=== PATIENT | female | born 1955 | race Caucasian/White ===

== ENCOUNTER → 2016-08-11 | Outpatient (CLI) | payer BC ==
[~2016-08-11] MED LIST: AMOX-355 PO; ESTR0.455; HYDR-3583 PO
--- NOTE | 2016-08-11 09:32 | Diagnostic Imaging Report ---
CLINICAL INDICATION: Patient with hematuria. Patient has family history of bladder cancer. EXAM: Ultrasound of both kidneys. COMPARISON: None. FINDINGS: There is mild prominence of the right renal pelvis which is nonspecific. Otherwise, both kidneys are normal in size, shape, echogenicity and cortical thickness without hydronephrosis, stones, or focal lesions with the right and left kidneys measuring 9.9 cm and 9.7 cm in their craniocaudal dimensions, respectively. The bladder is decompressed and cannot be appropriately evaluated on this exam. IMPRESSION: 1: Nonspecific mild prominence of the right renal pelvis. Otherwise unremarkable bilateral renal ultrasound. There is no evidence of hydronephrosis or gross renal mass. 2: Bladder is decompressed and cannot be evaluated on this exam. Dictated by: Dictated on workstation # [id number]
== END ==
LOC: RAD 08:41
PROVIDERS: ATTEND Family Medicine
DX: R31.9 Hematuria, unspecified (principal); Z80.51 Family history of malignant neoplasm of kidney
CPT/HCPCS: 76770

== ENCOUNTER → 2017-07-11 | Outpatient (CLI) | payer BC ==
[~2017-07-11] MED LIST changes: +ESTR0.5T PO; +LORA10TA76 PO
--- NOTE | 2017-07-11 15:22 | Diagnostic Imaging Report ---
INDICATION: Routine screening. COMPARISON: 04/05/2013. TECHNIQUE: Bilateral CC and MLO 3D mammography was performed. The current study was also evaluated with a Computer Aided Detection (CAD) system. FINDINGS: Scattered fibroglandular densities are identified bilaterally. There is a density noted in the superior right breast at mid depth on the MLO view, more prominent than on the prior exam. No correlate on the CC view is seen. No other suspicious densities are seen. No malignant appearing microcalcifications are identified. The axillae are unremarkable. IMPRESSION: Right breast density. Additional views including spot compression and mediolateral views are recommended. ACR BI-RADS Category 0: Incomplete. (Needs additional imaging evaluation). Result letter will be mailed to the patient. Note: At least 10% of breast cancer is not imaged by mammography. Dictated by: Dictated on workstation # [id number]
== END ==
LOC: RAD 08:45
PROVIDERS: ATTEND Family Medicine
DX: Z12.31 Encounter for screening mammogram for malignant neoplasm of breast (principal)
CPT/HCPCS: 77067

== ENCOUNTER → 2017-07-15 | Outpatient (CLI) | payer BC ==
--- NOTE | 2017-07-15 12:53 | Diagnostic Imaging Report ---
Indication: Right breast density. Patient presents for additional views. Correlation is made with recent screening study from 07/11/2017. 2-D and 3-D unilateral right diagnostic mammography was performed. Views included magnification as well as 90-degree lateral views as well as spot compression. Additional views confirm the presence of a subtle cluster of microcalcifications in the upper and slightly outer right breast posterior depth approximately 8 cm from the nipple. No definite associated soft tissue mass is seen. Tissue sampling would be recommended. Impression: BI-RADS 4 Suspicious clustered microcalcifications upper outer right breast posterior depth. Stereotactic biopsy is recommended. Dictated by: Dictated on workstation # [id number]
== END ==
LOC: RAD 11:19
PROVIDERS: ATTEND Family Medicine
DX: R92.2 Inconclusive mammogram (principal)

== ENCOUNTER 2017-07-18 05:41 | Outpatient (CLI) | payer BC ==
[~2017-07-18] VITALS: Ht 172.7 cm; Wt 73.9 kg
[~2017-07-18 05:41] MED LIST changes: -ESTR0.5T PO; -LORA10TA76 PO
[2017-07-18] MEDS ORDERED: LORA10TA76 PO (13:26)
[2017-07-18] MEDS ORDERED: ESTR0.5T PO (13:26)
== END 2017-07-18 13:30 ==
LOC: PREOP 05:41
PROVIDERS: ATTEND Surgery
DX: Z01.818 Encounter for other preprocedural examination (principal); Z12.11 Encounter for screening for malignant neoplasm of colon

== ENCOUNTER 2017-07-25 07:29 | Day surgery (SDC) | payer BC, OTHER ==
[~2017-07-25] VITALS: Ht 172.7 cm; Wt 73.9 kg
[~2017-07-25 07:29] MED LIST changes: +ESTR0.5T PO; +LORA10TA76 PO
[2017-07-25] MEDS ORDERED: NS IV 500 ML 500 ML ONE (07:44)
[2017-07-25] MEDS ORDERED: NS IV 500 ML 500 ML IV PRN (07:59)
[2017-07-25 08:02] VITALS: BP 130/74
[2017-07-25] MEDS ORDERED: fentaNYL INJECTION 100 MCG/2 ML AMP ONE ×2 (09:15→09:16)
[2017-07-25] MEDS ORDERED: MIDAZOLAM 2 MG/2 ML (VERSED) VIAL ONE ×4 (09:16→09:59)
[2017-07-25] MEDS: fentaNYL INJECTION 100 MCG/2 ML AMP IVP PRN ×4 (09:28→09:54)
--- NOTE | 2017-07-25 09:30 | History & Physicial ---
History of Present Illness History of Present Illness Reason for visit/HPI to undergo screening colonoscopy. No family history of polyps or colon cancer. Date of Admission 07/25/17 Date Seen by Provider: July 25, 2017 Time Seen by Provider: 09:10 I consulted on this patient on 07/25/17 09:29 Attending Physician Liliane Hernandez MD Admitting Physician Taylor Zheng DO Consult Allergies and Home Medications Allergies Coded Allergies: No Known Drug Allergies (Unverified , 07/18/17) Home Medications Estradiol 0.5 Mg Tablet, 0.25 MG PO DAILY, (Reported) Loratadine 10 Mg Tablet, PO DAILY, (Reported) Patient Home Medication List Home Medication List Reviewed: Yes Past Avdbqwf-Iagwdy-Yjeudt Hx Patient Social History Marrital Status: Employed/Student: unemployed Alcohol Use: Denies Use Recreational Drug Use: No Smoking Status: Never a Smoker Recent Foreign Travel: No Contact w/other who traveled: No Recent Hopitalizations: No Seasonal Allergies Seasonal Allergies: Yes Surgeries Yes Hysterectomy Respiratory No Cardiovascular No Neurological No Reproductive System Hx Reproductive Disorders: No Sexually Transmitted Disease: No HIV/AIDS: No 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 HEENT Loss of Vision: Bilateral Hearing Impairment: Denies Blood Transfusions Adverse Reaction to a Blood Tr: No (N/A) Constitutional: no symptoms reported EENTM: no symptoms reported Respiratory: no symptoms reported Cardiovascular: no symptoms reported Gastrointestinal: no symptoms reported Genitourinary: no symptoms reported Musculoskeletal: no symptoms reported Skin: no symptoms reported Psychiatric/Neurological: No Symptoms Reported Physical Exam Vital Signs Vital Signs - First Documented 07/25/17 08:02 Temp 97.0 Pulse 64 Resp 20 B/P (MAP) 130/74 (92) Pulse Ox 97 O2 Delivery Room Air Capillary Refill : General Appearance: No Apparent Distress Neck: Normal Inspection Respiratory: Lungs Clear Cardiovascular: Regular Rate, Rhythm Gastrointestinal: Non Tender, Soft Rectal: Deferred Back: Normal Inspection Extremity: Normal Inspection Neurologic/Psychiatric: Oriented x3 Skin: Warm/Dry Assessment/Plan Assessment and Plan lady to undergo screening colonoscopy. Discussed in detail. Admission Diagnosis Admission Status: Other (Outpt Proc) LILIANE HERNANDEZ MD July 25, 2017 9:30 am
--- NOTE | 2017-07-25 09:31 | Conscious Sedation/ASA ---
Conscious Sedation Pre-Proced Time Reviewed: 09:30 ASA Class: 2 Airway Mallampati Classification: ([place] appropriate class) I. II. III, IV Lungs Heart ASA score ASA 1: a normal healthy patient ASA 2: a patient with a mild systemic disease (mid diabetes, controlled hypertension, obesity ASA 3: a patient with a severe systemic disease that limits activity (angina , COPD, prior Myocardial infarction) ASA 4: a patient with an incapacitating disease that is a constant threat to life (CHF, renal failure) ASA 5: a moribund patient not expected to survive 24 hrs. (ruptured aneurysm) ASA 6: a declared brain patient whose organs are being harvested. For emergent operations, add the letter E after the classification Grade 1 Sedation Plan: Discussed options with patient/fam Note The patient is an appropriate candidate to undergo the planned procedure, sedation, and anesthesia. The patient immediately re-assessed prior to indication. LILIANE BRENNAN MD July 25, 2017 9:31 am
[2017-07-25] MEDS: MIDAZOLAM 2 MG/2 ML (VERSED) VIAL IVP PRN ×4 (09:32→10:07)
--- NOTE | 2017-07-25 10:32 | Endo Procedure Record ---
Endo Procedure Report Date of Procedure Last Colonoscopy: No July 25, 2017 Surgeon (s) LILIANE BRENNAN MD Post Procedure/Op Diagnosis 15 mm, pedunculated polyp at the mid sigmoid colon Extensive sigmoid diverticulosis 1 mm sessile polyp at the cecum Procedure Performed Colonoscopy to cecum Snare polypectomy 1 Hot biopsy polypectomy 1 Description of Procedure Anesthesia Type: Conscious Sedation Specimen(s) collected/removed Sigmoid polyp Description of the Procedure indication for the procedure: This lady came in for screening colonoscopy. Informed consent was obtained after reviewing the procedure in detail. Description of the procedure: She was placed in left lateral decubitus position and her vital signs were monitored. Conscious sedation was achieved using Versed and fentanyl. Digital rectal examination was unremarkable. The colonoscope was then introduced in the rectum and advanced with some difficulty around the sigmoid colon, to the cecum It was then withdrawn slowly and the mucosa examined in a systematic fashion. Findings: 1. Extensive sigmoid diverticulosis, making the procedure difficult. 2. 15 mm, pudendal related polyp at the mid sigmoid colon. This was snared piecemeal and part of it was retrieved using the approximate collection device. The rest of the resected polyp would be removed by straining her stools prior to discharge. 3.1 mm polyp at the cecum, that is excised with hot biopsy forceps. She tolerated the procedure well and was taken back to the nursing area in a stable condition. Impression: Colonoscopy. Large sigmoid polyp excised. Recommend repeating 2 years. Copy Copies To 1: RIMA PRASAD XAVIER M MD July 25, 2017 10:32 am
--- NOTE | 2017-07-25 10:33 | Discharge Inst-Simple/Standard ---
Discharge Inst-Standard Discharge Medications New, Converted or Re-Newed RX: Other Patient Instructions/Follow Up Plan of Care/Instructions/FU: Repeat colonoscopy in 2 years Activity as Tolerated: Yes Discharge Diet: No Restrictions LILIANE BRENNAN MD July 25, 2017 10:33 am
[2017-07-25 10:45] VITALS: BP 118/72
[2017-07-25 11:30] VITALS: BP 116/72
[2017-07-25 12:00] VITALS: BP 116/72
== END 2017-07-25 12:00 | disposition home or self-care (01) ==
LOC: ENDO 07:29
PROVIDERS: ATTEND Surgery
DX: Z12.11 Encounter for screening for malignant neoplasm of colon (principal); D12.5 Benign neoplasm of sigmoid colon; K63.5 Polyp of colon; K57.30 Diverticulosis of large intestine without perforation or abscess without bleeding
CPT/HCPCS: 88305

== ENCOUNTER → 2017-07-27 | Outpatient (CLI) | payer BC, OTHER ==
[~2017-07-27] MED LIST changes: +LIDOCAINE 1% INJ 20 ML 20 ML VIAL ONE
--- NOTE | 2017-07-27 21:09 | Diagnostic Imaging Report ---
INDICATION: Right breast calcifications. EXAMINATION: Patient presents for stereotactic biopsy. COMPARISON: Screening mammogram from 07/11/2017 and diagnostic mammogram from 07/15/2017. FINDINGS: Patient was brought to the mammography suite. The breast was positioned in the CC position. Attempt at targeting of the clustered microcalcifications in the upper and slightly outer right breast was performed. However, the calcifications were very difficult to visualize today. Therefore, the right breast was repositioned in a lateral medial position. Multiple 3D tomographic images were obtained, in an attempt to better visualize the calcifications. Again calcifications were very difficult to visualize. There was a set of calcifications visualized in the slightly upper and outer right breast. These were targeted. The right breast was then prepped and draped in the usual sterile fashion. A small amount of 1% lidocaine was utilized for local anesthesia. 10-gauge stereotactic needle was advanced into the right breast. Vacuum assisted core biopsy of the right breast was performed. Specimen radiograph was performed demonstrating very few calcifications within the samples. Therefore, additional sampling was performed and four additional core biopsies were obtained. Specimen radiograph was then obtained showing very few calcifications within the sample. A localizer clip was then deployed. The needle was withdrawn and hemostasis was obtained using manual compression. Patient obtained CC and LM mammograph post procedure. Post procedure image demonstrates biopsy changes with gas within the upper portion of the right breast. There is a clip in the upper central right breast. Overall architecture is somewhat obscured due to postbiopsy changes and a small hematoma. There appear to be some calcifications just lateral to the biopsy clip on the CC view. IMPRESSION: Stereotactic biopsy of the right breast, calcifications as described. The cluster of microcalcifications noted on diagnostic mammography were very difficult to visualize today, making targeting difficult. Pathology results are currently pending. Once pathology results are returned, management decisions will be made. Dictated by: Dictated on workstation # [id number]
== END ==
LOC: RAD 09:40
PROVIDERS: ATTEND Family Medicine
DX: D24.1 Benign neoplasm of right breast (principal)
CPT/HCPCS: 19081; 88305

== ENCOUNTER → 2018-02-20 | Outpatient (CLI) | payer BC ==
[~2018-02-20] MED LIST changes: -LIDOCAINE 1% INJ 20 ML 20 ML VIAL ONE
--- NOTE | 2018-02-20 21:29 | Diagnostic Imaging Report ---
EXAM: Unilateral diagnostic right mammogram. INDICATION: Postbiopsy followup FINDINGS: The previous diagnostic mammogram performed on 07/15/2017 noted a group of suspicious microcalcifications in the midportion of the right breast. These were subsequently biopsied using a stereotactic device on 07/27/2017. The results of biopsy revealed fibrocystic change with adenosis. There was no sign of malignancy. There were only a few tiny microcalcifications identified. On this exam, the microcalcifications are again identified. They do not seem to have changed significantly since the prior exam. There is a stereotactic clip in proximity to the calcifications. There are scattered fibroglandular densities in the right breast which could obscure a lesion. Overall, these do not appear to have changed significantly since the prior exam. IMPRESSION: 1. The microcalcifications in the right breast are again evident and do not appear to have changed significantly. There is no new evidence for malignancy. 2. The patient should have her annual bilateral mammogram on schedule in June of 2018. A diagnostic mammogram of the left breast would be recommended for further evaluation of the microcalcifications in question. 3. These results will be discussed Dr. Zheng. ACR BI-RADS Category 3: Probably benign findings. Result letter will be mailed to the patient. Note: At least 10% of breast cancer is not imaged by mammography. Dictated on workstation # [id number]
== END ==
LOC: RAD 12:58
PROVIDERS: ATTEND Family Medicine
DX: N64.89 Other specified disorders of breast (principal)

== ENCOUNTER 2019-05-08 11:10 | Outpatient (RCR) | payer BC, OTHER | END 2019-07-10 | disposition home or self-care (01) | PROVIDERS: ATTEND Family Medicine | DX: M54.42 Lumbago with sciatica, left side (principal) ==

== ENCOUNTER → 2019-08-24 | Outpatient (CLI) | payer MEDICARE ==
--- NOTE | 2019-08-24 12:18 | Diagnostic Imaging Report ---
INDICATION: Routine screening. Comparison is made with prior mammogram from 07/11/2017. 2-D and 3-D bilateral screening mammography was performed with CAD. Scattered fibroglandular densities are identified bilaterally. Since prior mammogram patient's undergone a 2nd biopsy of the upper central right breast. Previously noted calcifications in the upper central right breast are no longer visualized likely were mostly removed from biopsy. No new mass or suspicious microcalcifications are seen. Axillae are unremarkable. IMPRESSION: BI-RADS Category 2 No mammographic features suspicious for malignancy are identified. ACR BI-RADS Category 2: Benign findings. Result letter will be mailed to the patient. Note: At least 10% of breast cancer is not imaged by mammography. Dictated by: Dictated on workstation # [id number]
== END ==
LOC: RAD 10:41
PROVIDERS: ATTEND Family Medicine
DX: Z12.31 Encounter for screening mammogram for malignant neoplasm of breast (principal); Z98.890 Other specified postprocedural states
CPT/HCPCS: 77063; 77067

== ENCOUNTER → 2020-01-07 | Outpatient (CLI) | payer MEDICARE ==
[2020-01-09 09:31] VITALS: BP 146/89
--- NOTE | 2020-01-09 09:31 | Cardiology Stress Test Report ---
Stress Test Report Date of Procedure/Referring: Date of Procedure: Jan 07, 2020 PCP Tereza Hayward MD Admitting Physician Taylor Zheng DO Indications: HTN Baseline Heart Rate: 67 Baseline Blood Pressure: Blood Pressure Systolic: 146 Blood Pressure Diastolic: 89 Baseline EKG: Baseline EKG: normal sinus rhythm Summary/Conclusion: Summary: In summary, the patient started exercising with a baseline heart rate, blood pressure and EKG mentioned above Patient was able to exercise for a total of 9:30minutes on [place] protocol, METs 11.1 Maximum heart rate 132 Maximum blood pressure 219/87 Stress EKG, Minimal nondiagnostic changes Recovery EKG , Return to baseline Conclusion: 1. Good exercise tolerance for a total of 9:30 minutes on [place] protocol, 11.1 METs, achieving 85 percent of maximum expected heart rate 2. Minimal nondiagnostic EKG changes with exercise returned to baseline during recovery 3. No arrhythmia was noted 4. Severe hypertensive response to exercise with peak blood pressure 219/87 return to baseline during recovery TEREZA HAYWARD MD Jan 09, 2020 09:31
== END ==
LOC: CARD 09:06
PROVIDERS: ATTEND Internal Medicine Cardiovascular Disease
DX: I10 Essential (primary) hypertension (principal); E78.2 Mixed hyperlipidemia; Z82.49 Family history of ischemic heart disease and other diseases of the circulatory system
CPT/HCPCS: 93017; 93306

== ENCOUNTER 2021-01-27 13:00 | Outpatient (RCR) | payer MEDICARE | END 2021-02-27 08:34 | disposition home or self-care (01) | PROVIDERS: ATTEND Family Medicine | DX: M54.16 Radiculopathy, lumbar region (principal) ==

== ENCOUNTER → 2021-07-02 | Outpatient (CLI) | payer MEDICARE ==
--- NOTE | 2021-07-02 12:16 | Diagnostic Imaging Report ---
INDICATION: Low back pain radiating to both hips. TIME OF EXAM: 11:59 AM 3 views lumbar spine were obtained. Curvature and alignment of the lumbar spine is normal. Vertebral body heights are well-maintained. No acute compression fracture seen. There is generalized degenerative disc disease with variable disc space narrowing and marginal spurring. Atherosclerotic calcifications in the abdominal aorta are noted. IMPRESSION: Lumbar spondylosis. No acute bony abnormality is detected. Dictated by: Dictated on workstation # [id number]
--- NOTE | 2021-07-02 12:17 | Diagnostic Imaging Report ---
INDICATION: Low back pain radiating to both hips. TIME OF EXAM: 12:00 p.m. AP view pelvis and 2 views of each hip were obtained. The femoral acetabular alignment is normal bilaterally. Joint spaces are fairly well maintained. Both femoral heads and necks are intact. Rami are intact. No fractures are seen. IMPRESSION: No acute bony abnormality is detected. Dictated by: Dictated on workstation # [id number]
== END ==
LOC: RAD 11:34
PROVIDERS: ATTEND Family Medicine
DX: M47.816 Spondylosis without myelopathy or radiculopathy, lumbar region (principal)
CPT/HCPCS: 72100; 73523

== ENCOUNTER → 2021-07-14 | Outpatient (CLI) | payer MEDICARE ==
--- NOTE | 2021-07-14 13:53 | Diagnostic Imaging Report ---
INDICATION: Low back pain, chronic in nature. EXAMINATION: Lumbar spine MRI without contrast on 07/14/2021. FINDINGS: There is normal height and alignment of the vertebral bodies. No compression deformity is appreciated. There is a large heterogeneous lesion within the L2 vertebral body with signal characteristics most consistent with a hemangioma. The tip of the conus is unremarkable in appearance and location. L1-L2: There is disc desiccation. There is bilateral facet and ligamentum flavum hypertrophy. There is no significant central stenosis. The neural foramina appear patent. L2-L3: There is disc desiccation with a mild broad-based bulging disc. There is bilateral facet and ligamentum flavum hypertrophy. There is no central stenosis. The neural foramina appear patent. L3-L4: There is disc desiccation with a mild broad-based bulging disc. There is an anterior annular tear. There is bilateral facet and ligamentum flavum hypertrophy. There is mild central stenosis with narrowing of the right lateral recess. There is moderate bilateral neuroforaminal narrowing. L4-L5: There is disc desiccation with a left paracentral disc extrusion. This contains an annular tear. There is bilateral facet and ligamentum flavum hypertrophy. There is moderate central stenosis with marked narrowing of the left lateral recess. Moderate to severe bilateral neuroforaminal stenosis, left worse than right. L5-S1: There is disc desiccation with a right paracentral broad-based bulging disc. There is bilateral facet and ligamentum flavum hypertrophy with fluid in the facet joints bilaterally. There is mild central narrowing. The neural foramina demonstrate minimal bilateral narrowing. The visualized intra-abdominal structures demonstrate likely bilateral parapelvic cysts within the kidneys. IMPRESSION: Multilevel diffuse degenerative disease as discussed above. Dictated by: Dictated on workstation # [id number]
== END ==
LOC: RAD 13:15
PROVIDERS: ATTEND Nurse Practitioner Family
DX: M47.27 Other spondylosis with radiculopathy, lumbosacral region (principal); M48.07 Spinal stenosis, lumbosacral region; M51.17 Intervertebral disc disorders with radiculopathy, lumbosacral region
CPT/HCPCS: 72148

== ENCOUNTER → 2021-08-11 | Outpatient (RCR) | payer MEDICARE | END | disposition home or self-care (01) | PROVIDERS: ATTEND Nurse Practitioner Family | DX: M47.26 Other spondylosis with radiculopathy, lumbar region (principal) ==

== ENCOUNTER 2021-09-09 11:13 | Outpatient (RCR) | payer MEDICARE | END 2021-09-10 | disposition still patient (30) | PROVIDERS: ATTEND Nurse Practitioner Family | DX: M47.26 Other spondylosis with radiculopathy, lumbar region (principal) ==

== ENCOUNTER 2021-09-30 13:58 | Outpatient (RCR) | payer MEDICARE | END 2021-10-11 | disposition home or self-care (01) | PROVIDERS: ATTEND Nurse Practitioner Family | DX: M47.26 Other spondylosis with radiculopathy, lumbar region (principal) ==

== ENCOUNTER → 2022-04-30 | Outpatient (CLI) | payer MEDICARE ==
--- NOTE | 2022-05-03 10:25 | Diagnostic Imaging Report ---
EXAMINATION: 3D bilateral screening mammogram with CAD. INDICATION: Screening. COMPARISON: This study was compared to the prior exams of 08/24/2019, 02/20/2018, and 07/11/2017. PERSONAL HISTORY: At this time, there are no current complaints. FINDINGS: The breasts are predominantly fatty. When compared to the previous study, there has been no significant change. The stereotactic clips in the right breast seen previously are again evident and no different. There is no primary or secondary sign of malignancy noted. IMPRESSION: 1. There is no evidence for malignancy. 2. The patient should have her annual bilateral screening mammogram on schedule in April 2023. ACR BI-RADS Category 1: Negative. Result letter will be mailed to the patient. Note: At least 10% of breast cancer is not imaged by mammography. Dictated on workstation # [id number]
== END ==
LOC: RAD 11:02
PROVIDERS: ATTEND Family Medicine
DX: Z12.31 Encounter for screening mammogram for malignant neoplasm of breast (principal)
CPT/HCPCS: 77063; 77067

== ENCOUNTER 2022-10-06 06:22 | Outpatient (CLI) | payer MEDICARE ==
[~2022-10-06] VITALS: Ht 172.7 cm; Wt 70.0 kg
[2022-10-06] MEDS ORDERED: MELO15TA39 PO (12:29)
[2022-10-06] MEDS ORDERED: MAGN250T13 PO (12:29)
[2022-10-06] MEDS ORDERED: OMEG100032 PO (12:29)
[2022-10-06] MEDS ORDERED: OMEP40CA6 PO (12:29)
[2022-10-06] MEDS ORDERED: CHOL100048 PO (12:29)
[2022-10-06] MEDS ORDERED: FLUT15.812 NS (12:29)
== END 2022-10-06 12:34 | disposition home or self-care (01) ==
LOC: PREOP 06:22
PROVIDERS: ATTEND Surgery
DX: Z01.818 Encounter for other preprocedural examination (principal)

== ENCOUNTER → 2022-10-07 | Outpatient (CLI) | payer MEDICARE ==
[~2022-10-07] MED LIST changes: +CHOL100048 PO; +FLUT15.812 NS; +MAGN250T13 PO; +MELO15TA39 PO; +OMEG100032 PO; +OMEP40CA6 PO
--- NOTE | 2022-10-07 17:11 | Diagnostic Imaging Report ---
EXAMINATION: US head and neck soft tissue. TECHNIQUE: Multiple real-time grayscale images were obtained of the neck in various projections. HISTORY: Cervical lymphadenopathy COMPARISON: None available. FINDINGS: There are several small lymph nodes in the neck. They all measure less than 1 cm in short axis. No suspicious lymph nodes or masses seen. IMPRESSION: 1. Normal-appearing lymph nodes in the neck. Dictated by: Dictated on workstation # [id number]
== END ==
LOC: RAD 11:32
PROVIDERS: ATTEND Nurse Practitioner
DX: R59.0 Localized enlarged lymph nodes (principal)
CPT/HCPCS: 76536

== ENCOUNTER 2022-10-15 10:45 | Day surgery (SDC) | payer MEDICARE ==
[~2022-10-15] VITALS: Ht 172.7 cm; Wt 70.0 kg
[2022-10-15] VITALS (8 sets, daily range): BP systolic 115–131; BP diastolic 61–88
[2022-10-15] MEDS ORDERED: LACTATED RINGERS 1,000 ML IV STA (10:53)
[2022-10-15] MEDS ORDERED: HURRICAINE EXT TUBE (BENZOCAINE) XX PRN (11:00)
--- NOTE | 2022-10-15 12:08 | Progress Note-Pre Operative ---
Pre-Operative Progress Note Date H&P Reviewed: Oct 15, 2022 Time H&P Reviewed: 12:08 History & Physical: H&P Reviewed, Patient Examed, No changes noted Pre-Operative Diagnosis: GERD, hx of polyps REX WISE DO Oct 15, 2022 12:08
[2022-10-15] MEDS ORDERED: MIDAZOLAM 2 MG/2 ML (VERSED) VIAL ONE (12:22)
[2022-10-15] MEDS ORDERED: PROPOFOL INJECTION 50 ML IV ONE (12:22)
--- NOTE | 2022-10-15 13:49 | Progress Note-Post Operative ---
Post-Operative Progess Note Surgeon (s)/Custom Garment Designer (s) Surgeon REX WISE DO Custom Garment Designer: None Pre-Operative Diagnosis GERD, hx of polyps Post-Operative Diagnosis Hiatal Hernia, Reflux Esophagitis, Diveticulosis, Colon Polyps Procedure & Operative Findings Date of Procedure 10/15/22 Procedure Performed/Findings EGD with biopsy, Colonoscopy with hot biopsy, polypectomy x 3, snare polypectomy x 1 Anesthesia Type per PALLET ASSEMBLER Estimated Blood Loss Estimated blood loss (mL): None Specimens/Packing Specimens Removed Antrum, GE, and colon polyps REX WISE DO Oct 15, 2022 13:49
[2022-10-15] MEDS ORDERED: PANT40TA2 PO (13:53)
--- NOTE | 2022-10-15 13:54 | Discharge Inst-Simple/Standard ---
Discharge Inst-Standard Discharge Medications New, Converted or Re-Newed RX: Transmitted to Pharmacy Patient Instructions/Follow Up Plan of Care/Instructions/FU: 2 weeks [place] Activity as Tolerated: Yes Discharge Diet: Regular Diet (GERD Diet) REX WISE DO Oct 15, 2022 13:54
--- NOTE | 2022-10-15 13:58 | Anesthesia-General Post-Op ---
MAC Patient Condition Mental Status/LOC: Same as Preop Cardiovascular: Satisfactory Nausea/Vomiting: Absent Respiratory: Satisfactory Pain: Controlled Complications: Absent Post Op Complications Complications None Follow Up Care/Instructions Patient Instructions None needed. Anesthesiology Discharge Order Discharge Order Patient is doing well, no complaints, stable vital signs, no apparent adverse anesthesia problems. No complications reported per nursing. [employer] LEASING INFORMATION CLERK Oct 15, 2022 13:58
--- NOTE | 2022-10-15 16:47 | OPERATIVE REPORT ---
DATE OF SERVICE: 10/15/2022 PREOPERATIVE DIAGNOSES: Gastroesophageal reflux disease and history of polyps. POSTOPERATIVE DIAGNOSES: Hiatal hernia, reflux esophagitis, diverticulosis, colon polyps. PROCEDURES: EGD with biopsies, colonoscopy with hot biopsy polypectomy x3 and snare polypectomy x1. SURGEON: Nnamdi Prieto DO ANESTHESIA: Per MARKETING CLERK. ESTIMATED BLOOD LOSS: None. COMPLICATIONS: None. INDICATIONS: The patient is a 67-year-old female, needing EGD and colonoscopy for further evaluation. She understands risks and benefits of procedure and wished to proceed. Consent was signed in chart. DESCRIPTION OF PROCEDURE: The patient was taken to endoscopy suite, placed in left lateral recumbent position. Timeout was performed. Scope was inserted in the mouth, down the esophagus, stomach, into the duodenum without difficulty. No polyps, masses or ulcerations within the duodenum. Scope was slowly retracted back into stomach where it was further insufflated. Biopsy of the antrum was obtained. No polyps, masses or ulcerations. Scope was retroflexed noting a small hiatal hernia. Scope was returned to its normal position, slowly withdrawn until distal esophagus the appearance of reflux esophagitis, a couple of biopsies were obtained from this area. Scope was then slowly retracted back until completely removed, noting no other pathology. Digital rectal exam was performed. No palpable polyps, masses or ulcerations. Scope was inserted in the rectum and advanced all the way to the cecum with minimal difficulty. Prep was adequate. Scope was then slowly retracted back into cecum, a small polyp was present, which hot biopsy polypectomy was performed. Scope was then continuously retracted back in the ascending colon, another polyp was present, which hot biopsy polypectomy was performed. Scope was then continuously retracted back in the transverse colon, another polyp was present, which hot biopsy polypectomy was performed. Scope was then continuously retracted back. No polyps, masses or ulcerations within the descending colon. Moderate amount of diverticulosis present within the left colon. In the sigmoid colon, large pedunculated polyp, which had to be removed in piecemeal with a snare polyp was performed. A scope had to be retracted multiple times pulling pieces out. Scope was then reinserted and slowly retracted back into the rectum where it was also retroflexed noting no other pathology. Scope was returned to its normal position, slowly withdrawn until completely removed. The patient tolerated the procedure well without complications, taken to recovery room in stable condition. RECOMMENDATIONS: The patient will change omeprazole to Protonix 40 mg daily. Due to a large pedunculated polyp with repeat flexible sigmoidoscopy to reevaluate to make sure it has been completely eradicated. Also, diverticulosis, we would recommend high fiber diet. Job ID: [id number] DocumentID: [id number] Dictated Date: 10/15/2022 14:14:28 Ball Racker Date: 10/15/2022 16:46:00 Dictated By: DO OBDULIA YBARRA
== END 2022-10-15 14:54 | disposition home or self-care (01) ==
LOC: ENDO 10:45
PROVIDERS: ATTEND Surgery
DX: Z12.11 Encounter for screening for malignant neoplasm of colon (principal); D12.0 Benign neoplasm of cecum; D12.2 Benign neoplasm of ascending colon; D12.3 Benign neoplasm of transverse colon; D12.5 Benign neoplasm of sigmoid colon; K57.30 Diverticulosis of large intestine without perforation or abscess without bleeding; K21.00 Gastro-esophageal reflux disease with esophagitis, without bleeding; K44.9 Diaphragmatic hernia without obstruction or gangrene; K31.89 Other diseases of stomach and duodenum; R59.0 Localized enlarged lymph nodes